=== PATIENT | female | born 1995 | race Caucasian/White ===

== ENCOUNTER → 2024-03-24 12:29 | Outpatient (CLI) | payer OTHER, SELFPAY ==
[2024-03-24 13:13] LABS: Add Manual Diff / Slide Review NO; Basophils Absolute Auto 0 /uL (0-100); Basophils Percent Auto 0.6 % (0-2); Eosinophils Absolute Auto 300 /uL (0-450); Eosinophils Percent Auto 3.9 % (2-4); Hematocrit 37.9 % (36-46); Hemoglobin 12.7 g/dL (12.0-16.0); Lymphocytes Absolute Auto 1200 /uL (1100-4500); Lymphocytes Percent Auto 17.1 % (25-40); Mean Corpuscular HGB Conc 33.6 % (30-36); Mean Corpuscular Hemoglobin 29.8 PG (26-34); Mean Corpuscular Volume 88.7 fL (80-100); Monocytes Absolute Auto 400 /uL (0-900); Neutrophils Absolute Auto 5200 /uL (1500-7000); Neutrophils Percent Auto 73.4 % (50-75); Platelet Count 234 X10^3/uL (150-400); Red Blood Cell Count 4.27 X10^6/uL (4.0-5.2); Red Cell Distribution Width 12.5 % (11.6-14.8); White Blood Cell Count 7.1 X10^3/uL (4.5-11.0)
[2024-03-24 14:07] LABS: Appearance Urine UA CLEAR; Bilirubin Urine UA NEGATIVE (NEGATIVE); Color Urine UA YELLOW; Glucose Urine UA NEGATIVE (Negative); Ketones Urine UA NEGATIVE (NEGATIVE); Leukocyte Esterase Urine UA NEGATIVE (NEGATIVE); Nitrite Urine UA NEGATIVE (Negative); Occult Blood Urine UA NEGATIVE (Negative); Protein Urine UA NEGATIVE (Negative); Specific Gravity Urine UA >=1.030 (1.000-1.035); Urobilinogen Urine UA 0.2 E.U./dL (0.2)
[2024-03-26 05:13] LABS: RPR Screen Non Reactive (Non Reactive)
[2024-03-26 13:39] LABS: Varicella IgG Antibody Non Reactive (Non Reactive)
[2024-03-26 15:41] LABS: Hepatitis B Surface Antigen NEGATIVE s/c (NEGATIVE); Rubella Antibody IgG 7.8 IU/mL (>15)
[2024-03-26 15:54] LABS: HIV 1 & 2 Ab/Ag 4th Gen Combo NEGATIVE (NEGATIVE); Hep C Virus Ab w/Reflex Quant NEGATIVE s/c (NEGATIVE)
== END ==
PROVIDERS: PCP Family Medicine; Referring Provider Family Medicine; Visit Provider Family Medicine
DX: Z34.00 Encounter for supervision of normal first pregnancy, unspecified trimester (principal)
CPT/HCPCS: 36415; 80055; 81003; 86787; 86803; 86850; 86900; 86901; 87086; 87389

== ENCOUNTER → 2024-06-08 07:03 | Outpatient (CLI) | payer OTHER, SELFPAY ==
--- NOTE | 2024-06-08 07:04 | DI.US.S_ITS ---
PROCEDURE: US OB >= 14 WEEKS FETUS INDICATIONS: anatomy OUTSIDE/PRIOR DATING DATA: Last menstrual period (LMP): 01/16/2024. LMP-based estimated date of delivery (GREER): 10/22/2024. First dating scan (date and location): 03/21/2024. Estimated date of delivery (GREER) from first dating scan: 10/25/2024. The calculations are made using the clinical GREER of 10/22/2024. TECHNIQUE: Real-time scanning was performed of the fetus, with image documentation and biometric measurements. COMPARISON: None. FINDINGS: General: A single living intrauterine gestation is present. Presentation: Breech. Placenta: Placental position is posterior , without previa. Amniotic fluid index: 12.4 cm, normal range is 5-24 cm. Single deepest vertical pocket is 3.4 cm. heart rate: 141 beats per minute. Maternal cervical canal: 3.1 cm long. Normal lower limit is 2.5 cm. biometrics: Biparietal diameter: 4.8 cm 20 weeks 4 days Head circumference: 17.5 cm 20 weeks 0 days Abdominal circumference: 15.6 cm 20 weeks 5 days Femur length: 3.1 cm 19 weeks 4 days Clinically estimated gestational age: 20 weeks 4 days Composite gestational age from present scan: 20 weeks 2 days Estimated weight and percentile: 340 g 27th percentile Anatomic survey: Neuro: Ventricles are non-dilated at less than 10 mm. Cisterna magna is normal at 3-11 mm. Cerebellum is normal in size and morphology. Nuchal skin fold: Normal at less than 6 mm between 14-21 weeks gestational age. Face: Nose and lips, facial profile are normal. Spine: No evidence for spina bifida. Heart: 4-chambered heart is present, with normal ventricular outflow tracts. Diaphragm: Diaphragm is intact. Stomach: Left-sided stomach is present. Kidneys: No hydronephrosis. Normal is less than 5 mm in 2nd trimester, less than 7 mm in 3rd trimester. Cord: 3-vessel cord has orthotopic insertion. Bladder: Normal in size. Extremities: All 4 extremities identified. IMPRESSION: Single live intrauterine with gestational age of 20 weeks 2 days. Anatomy is within normal limits. We strive to produce accurate, complete, and clear reports of imaging services. To assist us in improving patient care, this report was composed using standard report templates and voice recognition software. Therefore, it may contain abnormal punctuation, insertions and/or omissions. Occasional wrong-word or sound-alike substitutions may occur. Though we review the report and make efforts to correct it, we do recommend that the report be read carefully in proper context to recognize any text inaccuracies. Dictated by: Courtney Parekh M.D. on 06/08/2024 at 15:45 Approved by: Courtney Parekh M.D. on 06/08/2024 at 15:46
== END ==
PROVIDERS: PCP Family Medicine; Referring Provider Family Medicine; Visit Provider Family Medicine
DX: Z34.02 Encounter for supervision of normal first pregnancy, second trimester (principal); Z3A.20 20 weeks gestation of pregnancy
CPT/HCPCS: 76811

== ENCOUNTER → 2024-07-30 08:54 | Outpatient (CLI) | payer OTHER, SELFPAY ==
[2024-07-30 10:40] LABS: Add Manual Diff / Slide Review NO; Basophils Absolute Auto 0 /uL (0-100); Basophils Percent Auto 0.5 % (0-2); Eosinophils Absolute Auto 200 /uL (0-450); Eosinophils Percent Auto 2.7 % (2-4); Hematocrit 30.9 % (36-46); Hemoglobin 10.4 g/dL (12.0-16.0); Lymphocytes Absolute Auto 800 /uL (1100-4500); Lymphocytes Percent Auto 10.7 % (25-40); Mean Corpuscular HGB Conc 33.8 % (30-36); Mean Corpuscular Hemoglobin 30.1 PG (26-34); Mean Corpuscular Volume 89.2 fL (80-100); Monocytes Absolute Auto 500 /uL (0-900); Monocytes Percent Auto 6.1 % (3-14); Neutrophils Absolute Auto 6300 /uL (1500-7000); Platelet Count 177 X10^3/uL (150-400); Red Blood Cell Count 3.46 X10^6/uL (4.0-5.2); Red Cell Distribution Width 12.3 % (11.6-14.8); White Blood Cell Count 7.8 X10^3/uL (4.5-11.0)
[2024-07-30 11:06] LABS: GTT (PREG) 1 Hour PP 50gm Dose 121 mg/dL (76-139)
== END ==
PROVIDERS: PCP Family Medicine; Referring Provider Family Medicine; Visit Provider Family Medicine
DX: Z34.00 Encounter for supervision of normal first pregnancy, unspecified trimester (principal)
CPT/HCPCS: 36415; 82950; 85025

== ENCOUNTER 2024-09-04 12:03 | Outpatient (CLI) | payer OTHER, SELFPAY ==
--- NOTE | 2024-09-04 13:00 | P.TNLD_ITS ---
Visit Information Visit Information Date of evaluation: 09/04/24 Primary OB Provider: Mary Soares Comments/Additional reasons for admission: 29yo at 33w1d here for decreased movement. Pt also reports abdominal cramping ongoing for a couple days, however now resolved. [facility] Medical History (Updated 03/19/24 @ 15:33 by Gerri Edge RN) Chronic sinusitis Surgical History (Updated 03/19/24 @ 15:33 by Gerri Edge RN) [place] teeth extracted History of sinus surgery Family History (Updated 03/19/24 @ 15:33 by Gerri Edge RN) Father Gout Social History marital status: number of children: 0 household members: spouse lives independently: Yes caregiver/support person: No housing: house pets and animals: Yes (dogs) education level: college (bachelor's degree) occupational status: employed (works from home) current occupational exposures/hazards: No special dana needs: No travel history: recent (domestic only) seatbelt use: always helmet use: Yes water heater temp set < 120 deg: Yes working smoke detector in home: Yes fire extinguisher in home: Yes carbon monox detector in home: Yes firearms in home: Yes firearms unloaded and locked: Yes do you feel safe at home: Yes second hand exposure: No alcohol intake: former (0-1/week when not ) substance use type: does not use during the past year weight has: remained stable well-balanced diet: about half the time daily servings fruits/ve-4 Type(s) of exercise: walking and aerobic Evaluation Evaluation Baseline heart rate: 140 Variability: Moderate (11-25) monitor accelerations: Present Monitor Decelerations: Absent Category of Tracing: Reactive Diagnosis, Plan/Disposition Plan/Disposition Plan: 29yo at 33w1d here due to decreased movement. NST reactive. Stable for d/c home. OB Disposition: home
== END 2024-09-04 12:38 | disposition home or self-care (01) ==
LOC: LABOR 13:55 → OB 09-07 16:37
PROVIDERS: PCP Family Medicine; Referring Provider Family Medicine; Visit Provider Family Medicine
DX: O36.8130 Decreased fetal movements, third trimester, not applicable or unspecified (principal); Z3A.33 33 weeks gestation of pregnancy
CPT/HCPCS: 59025; G0378; G0379

== ENCOUNTER → 2024-09-10 06:58 | Outpatient (CLI) | payer OTHER, SELFPAY ==
--- NOTE | 2024-09-10 06:59 | DI.US.S_ITS ---
PROCEDURE: US OB LIMITED INDICATIONS: size < dates OUTSIDE/PRIOR DATING DATA: Last menstrual period (LMP): 01/16/2024. LMP-based estimated date of delivery (GREER): 10/22/2024. First dating scan (date and location): 03/21/2024. Estimated date of delivery (GREER) from first dating scan: 10/25/2024. The calculations are made using the clinical GREER of 10/22/2024. TECHNIQUE: Real-time scanning was performed of the fetus, with image documentation and biometric measurements. Endovaginal scanning: Not performed COMPARISON: 06/08/2024 FINDINGS: A single living intrauterine gestation is present. Presentation: Cephalic. Placenta: Placental position is posterior, without previa. Amniotic fluid index: 14.9 cm, normal range is 5-24 cm. Single deepest vertical pocket is 4.1 cm. heart rate: 131 beats per minute. Maternal cervical canal: 3.1 cm long. Normal lower limit is 2.5 cm. Biometric measurements: BPD: 8.2 cm, 32 weeks 5 days HC: 30.5 cm, 33 weeks 6 days AC: 27.9 cm, 32 weeks 0 days FL: 6.3 cm, 32 weeks 4 days Clinically estimated gestational age: 33 weeks 4 days Estimated gestational age from today's scan: 32 weeks 2 days Estimated weight: 1976 g, 14th percentile. movements noted. IMPRESSION: 1. [place] living intrauterine at 32 weeks 2 days based on today's ultrasound. This is concordant with prior dating. Fetus is in the 14th percentile for weight. Cephalic position. 2. Normal placenta and amniotic fluid. Dictated by: Dilshad Oliveros M.D. on 09/10/2024 at 10:39 Approved by: Dilshad Oliveros M.D. on 09/10/2024 at 10:43
== END ==
PROVIDERS: PCP Family Medicine; Referring Provider Family Medicine; Visit Provider Family Medicine
DX: O26.843 Uterine size-date discrepancy, third trimester (principal); Z3A.32 32 weeks gestation of pregnancy
CPT/HCPCS: 76815

== ENCOUNTER 2024-09-11 12:26 | Outpatient (CLI) | payer OTHER, SELFPAY ==
--- NOTE | 2024-09-11 12:55 | P.TNLD_ITS ---
Visit Information Visit Information Date of evaluation: 09/11/24 Primary OB Provider: Mary Soares Comments/Additional reasons for admission: 29yo at 34w1d here for NST for FGR. Feeling baby move regularly. No LOF, vaginal bleeding, contractions. [facility] Medical History (Updated 09/11/24 @ 13:00 by Mary Soares MD) Chronic sinusitis Surgical History (Updated 03/19/24 @ 15:33 by Gerri Edge, RN) [place] teeth extracted History of sinus surgery Family History (Updated 03/19/24 @ 15:33 by Gerri Edge, RN) Father Gout Social History marital status: number of children: 0 household members: spouse lives independently: Yes caregiver/support person: No housing: house pets and animals: Yes (dogs) education level: college (bachelor's degree) occupational status: employed (works from home) current occupational exposures/hazards: No special dana needs: No travel history: recent (domestic only) seatbelt use: always helmet use: Yes water heater temp set < 120 deg: Yes working smoke detector in home: Yes fire extinguisher in home: Yes carbon monox detector in home: Yes firearms in home: Yes firearms unloaded and locked: Yes do you feel safe at home: Yes second hand exposure: No alcohol intake: former (0-1/week when not ) substance use type: does not use during the past year weight has: remained stable well-balanced diet: about half the time daily servings fruits/ve-4 Type(s) of exercise: walking and aerobic Evaluation Evaluation Baseline heart rate: 135 Variability: Moderate (11-25) monitor accelerations: Present Monitor Decelerations: Absent Diagnosis, Plan/Disposition Final Diagnosis (1) 34 weeks gestation of : Status: Acute (2) growth restriction: Status: Acute Plan/Disposition Plan: 29yo at 34w1d here for NST for FGR, 14th percentile. NST reactive. OB Disposition: home
== END 2024-09-11 13:02 | disposition home or self-care (01) ==
LOC: OB 09-14 10:36
PROVIDERS: PCP Family Medicine; Referring Provider Family Medicine; Visit Provider Family Medicine
DX: O36.5930 Maternal care for other known or suspected poor fetal growth, third trimester, not applicable or unspecified (principal); Z3A.34 34 weeks gestation of pregnancy
CPT/HCPCS: 59025; G0378; G0379

== ENCOUNTER 2024-09-17 11:15 | Outpatient (CLI) | payer OTHER, SELFPAY | END 2024-09-17 11:48 | disposition home or self-care (01) | LOC: LABOR 12:11 → OB 12:53 | PROVIDERS: PCP Family Medicine; Referring Provider Family Medicine; Visit Provider Family Medicine | DX: O36.5930 Maternal care for other known or suspected poor fetal growth, third trimester, not applicable or unspecified (principal); Z3A.35 35 weeks gestation of pregnancy | CPT/HCPCS: 59025; G0378; G0379 ==

== ENCOUNTER → 2024-09-25 08:27 | Outpatient (CLI) | payer OTHER, SELFPAY ==
[2024-09-26 10:53] LABS: Strep Grp B PCR NEG for Grp B Strep
== END ==
PROVIDERS: PCP Family Medicine; Referring Provider Family Medicine; Visit Provider Family Medicine
DX: Z34.00 Encounter for supervision of normal first pregnancy, unspecified trimester (principal)
CPT/HCPCS: 87653

== ENCOUNTER 2024-09-25 11:52 | Outpatient (CLI) | payer OTHER, SELFPAY ==
--- NOTE | 2024-09-25 12:33 | P.TNLD_ITS ---
Visit Information Visit Information Date of evaluation: 09/25/24 Primary OB Provider: Mary Soares Reason for Evaluation: Yes non-stress test non-stress test reason: other (growth restriction) [facility] Medical History (Updated 09/25/24 @ 08:50 by Mary Soares MD) Chronic sinusitis Surgical History (Updated 03/19/24 @ 15:33 by Gerri Edge, RN) [place] teeth extracted History of sinus surgery Family History (Updated 03/19/24 @ 15:33 by Gerri Edge, RN) Father Gout Social History marital status: number of children: 0 household members: spouse lives independently: Yes caregiver/support person: No housing: house pets and animals: Yes (dogs) education level: college (bachelor's degree) occupational status: employed (works from home) current occupational exposures/hazards: No special dana needs: No travel history: recent (domestic only) seatbelt use: always helmet use: Yes water heater temp set < 120 deg: Yes working smoke detector in home: Yes fire extinguisher in home: Yes carbon monox detector in home: Yes firearms in home: Yes firearms unloaded and locked: Yes do you feel safe at home: Yes second hand exposure: No alcohol intake: former (0-1/week when not ) substance use type: does not use during the past year weight has: remained stable well-balanced diet: about half the time daily servings fruits/ve-4 Type(s) of exercise: walking and aerobic Evaluation Evaluation Baseline heart rate: 145 Variability: Moderate (6-25) monitor accelerations: Present Monitor Decelerations: Absent Category of Tracing: Reactive Diagnosis, Plan/Disposition Plan/Disposition Plan: 29yo at 36w1d here for NST for growth restriction. NST reactive. Stable for d/c home. OB Disposition: home
== END 2024-09-25 12:38 | disposition home or self-care (01) ==
LOC: LABOR 12:04 → OB 09-29 14:56
PROVIDERS: PCP Family Medicine; Referring Provider Family Medicine; Visit Provider Family Medicine
DX: O36.5930 Maternal care for other known or suspected poor fetal growth, third trimester, not applicable or unspecified (principal); Z3A.31 31 weeks gestation of pregnancy
CPT/HCPCS: 59025; 87653; G0378; G0379

== ENCOUNTER 2024-10-02 08:50 | Outpatient (CLI) | payer OTHER, SELFPAY | END 2024-10-02 10:03 | disposition home or self-care (01) | LOC: LABOR 09:07 → OB 13:18 | PROVIDERS: PCP Family Medicine; Referring Provider Family Medicine; Visit Provider Family Medicine | DX: O36.5930 Maternal care for other known or suspected poor fetal growth, third trimester, not applicable or unspecified (principal); Z3A.37 37 weeks gestation of pregnancy | CPT/HCPCS: 59025; G0378; G0379 ==

== ENCOUNTER → 2024-10-07 07:25 | Outpatient (CLI) | payer OTHER, SELFPAY ==
--- NOTE | 2024-10-07 07:26 | DI.US.S_ITS ---
PROCEDURE: US OB LIMITED INDICATIONS: growth OUTSIDE/PRIOR DATING DATA: The calculations are made using the GREER of 10/22/2024. TECHNIQUE: Real-time scanning was performed of the fetus, with image documentation and biometric measurements. Endovaginal scanning: Not performed COMPARISON: [facility], , OB LIMITED, 09/10/2024, 7:09. FINDINGS: General: A single living intrauterine gestation is present. Presentation: Vertex. Placenta: Placental position is posterior , without previa. Amniotic fluid index: 19.2 cm, normal range is 5-24 cm. Single deepest vertical pocket is 6.8 cm. heart rate: 140 beats per minute. Maternal cervical canal: Not well seen biometrics: Biparietal diameter: 9.2 cm, 37 weeks 2 days Head circumference: 32.7 cm, 37 weeks 1 day Abdominal circumference: 32.2 cm, 36 weeks 1 day Femur length: 7.1 cm, 36 weeks 2 days Clinically estimated gestational age: 37 weeks 6 days Composite gestational age from present scan: 36 weeks 5 days Estimated weight and percentile: 2926 g, 25th percentile Other: Not applicable. IMPRESSION: Single live intrauterine consistent with 36 weeks and 5 days. Estimated weight is in the 25th percentile. We strive to produce accurate, complete, and clear reports of imaging services. To assist us in improving patient care, this report was composed using standard report templates and voice recognition software. Therefore, it may contain abnormal punctuation, insertions and/or omissions. Occasional wrong-word or sound-alike substitutions may occur. Though we review the report and make efforts to correct it, we do recommend that the report be read carefully in proper context to recognize any text inaccuracies. Dictated by: Mark Chilel M.D. on 10/07/2024 at 13:39 Approved by: Mark Chilel M.D. on 10/07/2024 at 13:41
== END ==
LOC: US 07:26
PROVIDERS: PCP Family Medicine; Referring Provider Family Medicine; Visit Provider Family Medicine
DX: Z34.03 Encounter for supervision of normal first pregnancy, third trimester (principal); Z3A.37 37 weeks gestation of pregnancy
CPT/HCPCS: 76815

== ENCOUNTER 2024-10-08 07:52 | Outpatient (CLI) | payer OTHER, SELFPAY ==
--- NOTE | 2024-10-08 08:45 | P.TNLD_ITS ---
Visit Information Visit Information Date of evaluation: 10/08/24 Primary OB Provider: Mary Soares Comments/Additional reasons for admission: 29yo at 38w0d here for NST for FGR. [facility] Medical History (Updated 10/08/24 @ 09:26 by Mary Soares MD) Chronic sinusitis Surgical History (Updated 03/19/24 @ 15:33 by Gerri Edge, RN) [place] teeth extracted History of sinus surgery Family History (Updated 03/19/24 @ 15:33 by Gerri Edge, RN) Father Gout Social History marital status: number of children: 0 household members: spouse lives independently: Yes caregiver/support person: No housing: house pets and animals: Yes (dogs) education level: college occupational status: employed current occupational exposures/hazards: No special dana needs: No travel history: recent seatbelt use: always helmet use: Yes water heater temp set < 120 deg: Yes working smoke detector in home: Yes fire extinguisher in home: Yes carbon monox detector in home: Yes firearms in home: Yes firearms unloaded and locked: Yes do you feel safe at home: Yes second hand exposure: No alcohol intake: former substance use type: does not use during the past year weight has: remained stable well-balanced diet: about half the time daily servings fruits/ve-4 Type(s) of exercise: walking and aerobic Evaluation Evaluation Baseline heart rate: 135 Variability: Moderate (6-25) monitor accelerations: Present Monitor Decelerations: Absent Category of Tracing: Reactive Diagnosis, Plan/Disposition Final Diagnosis (1) growth restriction: Status: Acute Plan/Disposition Plan: 29yo at 38w0d here for NST for FGR. NST reactive. Growth u/s now normal. No need for additional testing. OB Disposition: home
== END 2024-10-08 08:33 | disposition home or self-care (01) ==
LOC: LABOR 08:03 → OB 13:36
PROVIDERS: PCP Family Medicine; Referring Provider Family Medicine; Visit Provider Family Medicine
DX: O36.5930 Maternal care for other known or suspected poor fetal growth, third trimester, not applicable or unspecified (principal); Z3A.38 38 weeks gestation of pregnancy
CPT/HCPCS: 59025; G0378; G0379

== ENCOUNTER 2024-10-22 17:06 | Inpatient (IN) | payer OTHER, SELFPAY ==
[2024-10-22 17:30] VITALS: BP 128/69
[2024-10-22 20:15] LABS: Add Manual Diff / Slide Review NO; Hematocrit 30.7 % (36-46); Hemoglobin 10.1 g/dL (12.0-16.0); Lymphocytes Absolute Auto 1200 /uL (1100-4500); Mean Corpuscular HGB Conc 32.7 % (30-36); Mean Corpuscular Hemoglobin 26.5 PG (26-34); Mean Corpuscular Volume 81.1 fL (80-100); Platelet Count 157 X10^3/uL (150-400)
[2024-10-22] MEDS: ePHEDrine 50 MG/ML VIAL 10 MG IV (21:18)
--- NOTE | 2024-10-22 21:20 | PM.AN.REGBLK ---
Regional Block Pre-procedure Procedure: Continuous Lumbar Epidural for L&D Attending OB provider: Mary Soares PMH/ROS narrative: Healthy presents with SROM requesting lumbar epidural for labor pain. PSH/Anesthesia history narrative: [place] teeth without anesthetic complication. Exam narrative: See pre-anesthesia evaluation. ASA Class: II Labs: Hct 30.7 % (36-46) L 10/22/24 20:00 Plt Count 157 X10^3/uL (150-400) 10/22/24 20:00 Medications: Current Medications Generic Name Dose Route Start Last Admin Trade Name Freq PRN Reason Stop Dose Admin Carboprost Tromethamine 250 mcg 10/22/24 17:27 Carboprost 250 Mcg/Ml Ampul IM Q90M PRN Bleeding Fentanyl 50 mcg 10/22/24 17:27 Fentanyl 100 Mcg/2 Ml Inj IV Q1H PRN Pain, Moderate (4-6) Oxytocin/Lactated Ringer's 30 unit in 500 mls @ 200 mls/hr 10/22/24 17:27 Oxytocin Premix IV CONT PRN Bleeding Protocol Tranexamic Acid 1,000 mg/ 100 mls @ 600 mls/hr 10/22/24 17:27 Sodium Chloride IV NOW PRN Bleeding Lactated Ringer's 1,000 mls @ 100 mls/hr 10/22/24 17:30 Lactated Ringers IV 10/23/24 03:29 CONT YIFAN Lidocaine HCl 20 ml 10/22/24 17:27 Lidocaine 1% 20 Ml INJ INTRA-OP PRN Post Delivery Methylergonovine Maleate 0.2 mg 10/22/24 17:27 Methylergonovine 0.2 Mg Tablet PO Q6HR PRN Heavy Bleeding Methylergonovine Maleate 0.2 mg 10/22/24 17:27 Methylergonovine 0.2 Mg/Ml Vial IM NOW PRN Bleeding Metoclopramide HCl 10 mg 10/22/24 21:16 Metoclopramide 10 Mg/2 Ml Inj IV 10/23/24 21:16 Q4H PRN Nausea Mineral Oil 30 ml 10/22/24 17:27 Mineral Oil 30 Ml Udc TOP PRN PRN Version Misoprostol 800 mcg 10/22/24 17:27 Misoprostol 200 Mcg Tablet VT NOW PRN Bleeding Misoprostol 400 mcg 10/22/24 17:27 Misoprostol 200 Mcg Tablet SL NOW PRN Bleeding Naloxone HCl 0.2 mg 10/22/24 17:27 Naloxone 0.4 Mg/Ml Vial IV Q2MIN PRN Opiate Reversal Naloxone HCl 0.4 mg 10/22/24 21:16 Naloxone 0.4 Mg/Ml Vial IV Q2MIN PRN Opiate Reversal Ondansetron HCl 4 mg 10/22/24 21:16 Ondansetron 4 Mg/2 Ml Inj IV 10/23/24 21:16 Q6HR PRN Nausea Oxytocin 10 unit 10/22/24 17:27 Oxytocin 10 Unit/Ml Vial IM NOW PRN Bleeding Allergies: Allergies Allergy/AdvReac Type Severity Reaction Status Date / Time No Known Drug Allergies Allergy Verified 10/22/24 17:32 Procedure Insertion date: 10/22/24 Insertion time: 20:57 Prep/Local: 1% lidocaine (5mL to L3/4 interspace. CHG to back for skin prep.) Interspace: L3/4 Patient position: sitting Needle: 18 gauge Hustead Loss of resistance with: saline RAVINDER at (cm): 6 Catheter placed at SKIN (cm): 12 Catheter in SPACE (cm): 6 Sensory level: T10 Insertion: No CSF, No Blood, No Paresthesia with insertion, No Paresthesia with injection and No Test dose reaction Initial Medications TEST DOSE time: 20:58 TEST DOSE: 1.5% lidocaine with epinephrine 1:200k (mL): 3 BOLUS DOSE time: 21:04 BOLUS DOSE (mL): 10 BOLUS DOSE med: other (infusate) Infusion INFUSION: 0.125% bupivacaine and with fentanyl 2 mcg/mL Initial rate (mL/hr): 8 Post-procedure Anesthesia date START: 10/22/24 Anesthesia time START: 20:46 Anesthesia date END: 10/23/24 Anesthesia time END: 10:45 Post-procedure Anesthesia Assessment: Yes CV function: HR/BP stable, Yes Resp function: RR/sat/airway adequate, Yes Post-op hydration adequate, Yes Pain control adequate, Yes Nausea & vomiting absent, Yes Temperature > 36 C, Yes Mental status appropriate and No Anesthesia complications
[2024-10-23] MEDS: FENT 2MCG/ML BUPIV 0.125% EPI 200 MCG/100 ML PLAST..BAG 8 MCG EPIDURAL (04:03)
--- NOTE | 2024-10-23 06:10 | PM.OBHP.IH.1 ---
OB HPI Date/Time Date of admission: 10/22/24 Date Patient Seen: 10/23/24 Time Patient Seen: 06:11 History of Present Condition Chief complaint: labor GREER Calculator Estimated Delivery Date Method Current WG Current Estimate 10/22/24 LMP (Certain) 40w 1d Other Estimates 10/25/24 Ultrasound #1 39w 5d Estimated Gestational Age (weeks): 40w1d : 1 Para: 0 Narrative: Pt is a 29yo at 40w1d here due to ROM. The pt reports feeling a gush of fluid around 3pm yesterday. She started having some light cramping afterwards. She denies any vaginal bleeding. She continues to feel her baby move regularly. The pts was complicated by EFW at the 14th percentile at 32wks but 25th percentile at 35wks. care: good care, initiated at week # (9) and pounds weight gain (33) Dating criteria OB: LMP confirmed by 1st trimester US Ultrasounds: normal 1st trimester US and normal mid trimester US Obstetrical complications: none Medical complications OB: none Preadmission Labs Last OB Lab Results: Blood Type O Positive 10/22/24, 20:00 Antibody Screen Negative 10/22/24, 20:00 Hct, (36-46) 30.7 % L 10/22/24, 20:00 Hgb, (12.0-16.0) 10.1 g/dL L 10/22/24, 20:00 Hep Bs Antigen, (NEGATIVE) Negative s/c 03/24/24, 12:42 Hepatitis C Antibody, (NEGATIVE) Negative s/c 03/24/24, 12:42 Rubella Antibody, (>15) 7.8 IU/mL L 03/24/24, 12:42 VZV IgG Antibody, (Non Reactive) Non reactive 03/24/24, 12:42 Glucose 1 Hr 50 gm, (76-139) 121 mg/dL 07/30/24, 10:12 Group B Strep (PCR) Neg for grp b strep 09/25/24, 08:27 -: Urine: negative External Labs -: Urine: negative Evaluation Evaluation Baseline heart rate: 135 Variability: Moderate (6-25) monitor accelerations: Present Monitor Decelerations: Absent Contraction Frequency (minutes): 2 Status: Category l Dilation (cm): 9.5 Effacement (%): 100 station: +2 [facility] Medical History (Updated 10/21/24 @ 09:38 by Mary Soares MD) Chronic sinusitis Surgical History (Updated 03/19/24 @ 15:33 by Gerri Edge, CESARIO) [place] teeth extracted History of sinus surgery Family History (Updated 03/19/24 @ 15:33 by Gerri Edge, RN) Father Gout Social History marital status: number of children: 0 household members: spouse lives independently: Yes caregiver/support person: No housing: house pets and animals: Yes (dogs) education level: college occupational status: employed current occupational exposures/hazards: No special dana needs: No travel history: recent seatbelt use: always helmet use: Yes water heater temp set < 120 deg: Yes working smoke detector in home: Yes fire extinguisher in home: Yes carbon monox detector in home: Yes firearms in home: Yes firearms unloaded and locked: Yes do you feel safe at home: Yes Smoking Status: Never smoker second hand exposure: No alcohol intake: former substance use type: does not use during the past year weight has: remained stable well-balanced diet: about half the time daily servings fruits/ve-4 Type(s) of exercise: walking and aerobic Meds Home Medications and Allergies Home Medications ?Medication ?Instructions ?Recorded ?Confirmed ?Type vitamin-ferrous sulfate tab PO 03/19/24 10/21/24 History 27 mg iron-folic acid 0.8 mg tablet promethazine 12.5 mg tablet 12.5 mg PO TID PRN headache #20 05/13/24 10/22/24 Rx tabs Double Electric Breast Pump and #1 ea 07/08/24 10/22/24 Rx Supplies Allergies Allergy/AdvReac Type Severity Reaction Status Date / Time No Known Drug Allergies Allergy Verified 10/22/24 17:32 OB Exam Resp Effort & Inspection: normal respiratory effort Auscultation: clear to auscultation bilaterally Cardio Rate: regular rate Rhythm: regular rhythm Heart Sounds: S1 normal, S2 normal and no murmurs GI Inspection: non-distended Palpation: Yes soft and No tender Presentation: vertex Objective Labs 10/22/24 20:00 Labs: Laboratory Results - last 24 hr 10/22/24 20:00 WBC 11.2 H RBC 3.79 L Hgb 10.1 L Hct 30.7 L MCV 81.1 MCH 26.5 MCHC 32.7 RDW 14.9 H Plt Count 157 Neut % (Auto) 82.9 H Lymph % (Auto) 11.0 L [place] % (Auto) 4.3 Eos % (Auto) 1.3 L Baso % (Auto) 0.5 Neut # (Auto) 9300 H Lymph # (Auto) 1200 [place] # (Auto) 500 Eos # (Auto) 100 Baso # (Auto) 100 Blood Type O Positive Antibody Screen Negative Assessment and Plan Assessment and Plan Assessment and Plan narrative: 29yo at 40w1d here with SROM in labor. GBS negative, Rh positive. - Expectant management, anticipate - FHT reassuring - GBS negative, no prophylaxis indicated - Epidural in place and working well Time-Based Coding :: [TOTAL MINUTES] spent with patient and on the chart (including review of chart, obtaining history, exam, reviewing outside data, placing orders, documenting exam and treatment plan, and counseling patient) on [DATE].
[2024-10-23] MEDS: LACTATED RINGERS 1,000 ML 100 ML IV (07:10)
[2024-10-23] MEDS: OXYTOCIN PREMIX 30 UNIT/500 ML PLAST..BAG 333 UNIT IV (10:42)
[2024-10-23] MEDS: LIDOCAINE 1% 20 ML INJ (10:47)
--- NOTE | 2024-10-23 12:46 | PM.OBPRVD ---
Labor & Delivery Delivery date: 10/23/24 Intrapartal Events: Prolonged 2nd Stage > 2.5 hours Cervical ripening method: none Induction method: none Delivery monitor: external FHT and external uterine Route of delivery: Episiotomy description: None L&D Laceration Description: Perineal - 2nd Degree and Labial (left) Quantitative Blood Loss: 450 Anesthesia Type: Epidural Complications: None Narrative: PROCEDURE: at 40w1d presented with SROM in early labor and was admitted to Labor and Delivery. ROM occured at 15:30 with clear fluid. The patient progressed through the 1st stage over 9.5 hours. Pain was controlled with an epidural. The patient progressed through the 2nd stage over 4 hours and delivered a viable female with APGARs 8/9 at 10:36 via without complications. Nuchal cord x1 was reduced after delivery. The cord was cut and clamped after it stopped pulsating. The placenta delivered with gentle cord traction, and appeared complete. The perineum and vagina were inspected with left labial laceration repaired with 3-O Chromic and 2nd degree perineal laceratoin repaired with 2-O Vicryl. Needle and sponge counts were correct.? The vagina was inspected and no items were left in situ. Elizabeth was doing well with Franny, her and her , Christianity, at bedside. PREPROCEDURE DIAGNOSIS: Intrauterine at 40w1d GBS negative RH positive POSTPROCEDURE DIAGNOSIS: Intrauterine at 40w1d, delivered Same as preprocedure Baby 1: gender: Female Presentation: vertex Position: Left Occiput Anterior Placenta delivery description: Spontaneous Cord Vessel Description: 3 Vessels and Nuchal Cord score (1 min): 8 score (5 min): 9 weight: 6 lb 12.714 oz Plan for aftercare: Routine care
[2024-10-23] MEDS: DERMOPLAST SPRAY 20% 60 ML 1 SPRAY TOP (13:13)
[2024-10-23] MEDS: LANOLIN OINT 7 GM 1 APPLIC TOP (13:14)
[2024-10-23] MEDS: ACETAMINOPHEN 325 MG TABLET 650 MG PO ×2 (13:14→18:49)
[2024-10-23] MEDS: IBUPROFEN 600 MG TABLET PO ×2 (13:14→18:49)
[2024-10-24] MEDS: ACETAMINOPHEN 325 MG TABLET 650 MG PO ×2 (01:10→06:59)
[2024-10-24] MEDS: IBUPROFEN 600 MG TABLET PO ×2 (01:10→06:58)
[2024-10-24] MEDS: FAMOTIDINE 20 MG TABLET PO (01:10)
--- NOTE | 2024-10-24 11:20 | PM.OBDS.1 ---
Discharge Providers Provider Date of admission: 10/22/24 17:06 Discharge Date: 10/24/24 Primary care physician: Mary Soares MD Consults: 10/22/24 17:27 Consult to Anesthesiology Urgent Comment: Consulting Provider: Lorena Anaya Reason for consultation: Epidural Has provider been notified: Yes 10/23/24 12:36 Consult to Division Traffic Superintendent Routine Comment: Discharge provider: Mary Soares MD Summary Hospital Course Date Patient Seen: 10/24/24 Diagnoses: 40w1d gestation GBS negative Rh positive Hospital Course: The pt presented in labor with SROM at home. She received an epidural for pain control. She progressed to complete dilation and after prolonged 2nd stage had an uncomplicated of a viable baby girl. A 2nd degree perineal and left labial laceration were repaired. , there were no complications. At the time of discharge she was voiding, ambulating, and passing flatus without difficulty. Her lochia was decreasing appropriately. Her pain was well controlled. She was with good latch. She will f/u in 6 weeks for check. Peripartum Data Infant Delivery Method: Natural Vaginal Laceration Description: Perineal - 2nd Degree and Labial Episiotomy description: None Procedures: Spontaneous vaginal delivery complications: none [place] 1: Gender: Female Disposition of : home Time Spent with Patient Time attestation: Total time spent providing and/or coordinating discharge services: Objective Labs 10/22/24 20:00 Exam Narrative Exam Narrative: Gen: NAD, sitting comfortably in bed, appears well CV: RRR, no murmurs Resp: clear to auscultation bilaterally Abd: soft, appropriately tender, fundus firm and below the umbilicus, nondistended Ext: no edema Discharge Plan Discharge Plan Patient Disposition: Home Discharge orders & Medications Prescriptions: New acetaminophen 325 mg Tablet 650 mg PO Q6H PRN (Reason: Pain, Mild (1-3)) Qty: 60 0RF ibuprofen 600 mg Tablet 600 mg PO Q6H Qty: 60 0RF Continued (DME) Double Electric Breast Pump and Supplies See Rx Instructions .ROUTE .MEDSUPPLY Qty: 1 0RF Rx Instructions: As directed vit-ferrous sulfat-FA 27 mg iron- 0.8 mg tablet PO Discontinued promethazine 12.5 mg tablet 12.5 mg PO TID PRN (Reason: headache) Qty: 20 2RF Follow up/Referrals: Mary Soares MD [Primary Care Provider, [facility]] - 12/03/24 10:00 am Referral Note: Please arrive at 09:45am for your 6-week appointment with Dr. Soares. Diet/Activity/Treatments Diet: Diet as Tolerated and Regular Skin/Wound/Dressing Care Report to your healthcare provider any signs of infection, such as:: chills, fever, increased pain and unusual drainage Visit Report/Discharge Packet Instructions: DI for Labor and Delivery, Vaginal Stand Alone Forms: Discharge: Care, Patient Portal/API, Stroke Signs & Symptoms Discharge Data Primary Care Provider: Mary Soares
[2024-10-24 12:00] VITALS: BP 128/69
== END 2024-10-24 12:15 | disposition home or self-care (01) | DRG 807 ==
PROVIDERS: Admitting Provider Family Medicine; PCP Family Medicine; Referring Provider Family Medicine; Visit Provider Family Medicine
DX: O42.02 Full-term premature rupture of membranes, onset of labor within 24 hours of rupture (principal); Z37.0 Single live birth; O63.1 Prolonged second stage (of labor); Z3A.40 40 weeks gestation of pregnancy; O70.1 Second degree perineal laceration during delivery; O70.0 First degree perineal laceration during delivery
CPT/HCPCS: 59050; 84112; 85025; 86850; 86900; 86901; A9270; G0379; J2590